=== PATIENT | female | born 1960 | race Caucasian/White ===

== ENCOUNTER 2018-04-26 03:49 | Emergency (ER) | payer OTHER ==
[~2018-04-26] VITALS: Ht 162.6 cm; Wt 61.2 kg
[2018-04-26 03:54] VITALS: BP 146/74
[2018-04-26] MEDS ORDERED: DIPHENHIST50 MG PO (03:59)
[2018-04-26] MEDS ORDERED: TRAMADOL 50 MG50 MG PO (04:00)
[2018-04-26] MEDS ORDERED: NORCO 5-325 TA1 EACH PO (04:04)
[2018-04-26] MEDS ORDERED: FLEXERIL PO (04:04)
== END 2018-04-26 04:13 | disposition home or self-care (01) ==
LOC: M.ERS 03:49
DX: S46.812A Strain of other muscles, fascia and tendons at shoulder and upper arm level, left arm, initial encounter (principal); F17.210 Nicotine dependence, cigarettes, uncomplicated; X58.XXXA Exposure to other specified factors, initial encounter; Y93.89 Activity, other specified; Y92.89 Other specified places as the place of occurrence of the external cause; Y99.8 Other external cause status